=== PATIENT | female | born 1940 | race Caucasian/White ===

== ENCOUNTER 2018-12-13 16:25 | Emergency (ER) | payer OTHER, MEDICARE ==
[~2018-12-13] VITALS: Ht 160 cm; Wt 63.5 kg
[2018-12-13] MEDS ORDERED: Prinivil10 MG PO (16:37)
[2018-12-13] MEDS ORDERED: LEVSOD88 PO (16:37)
[2018-12-13] MEDS ORDERED: ATOR10 PO (16:37)
== END 2018-12-13 17:55 | disposition home or self-care (01) ==
LOC: ER 16:25
DX: M79.661 Pain in right lower leg (principal); Z88.0 Allergy status to penicillin; Z88.5 Allergy status to narcotic agent; Z91.041 Radiographic dye allergy status; Z79.899 Other long term (current) drug therapy
CPT/HCPCS: 73590; 73610; 99283-25; A9270-GY

== ENCOUNTER → 2024-03-17 | Outpatient (CLI) | payer MEDICARE ==
[~2024-03-17] MED LIST: ATOR10 PO; LEVSOD88 PO; Prinivil10 MG PO
[2024-03-17 15:18] LABS: Hematocrit 37.8 % (33.0-51.0); Hemoglobin 11.7 g/dL (11.5-16.0); Mean Corpuscular HGB 29.9 pg (26.0-34.0); Mean Corpuscular Volume 97 fL (80-100); Mean Platelet Volume 10.9 fL (9.1-12.4); Platelet Count 249 K/mm3 (150-400); RDW Coefficient Variation 13.3 % (11.7-14.2); RDW Standard Deviation 47.8 fL (35.1-46.3); Red Blood Cell Count 3.91 M/mm3 (3.80-5.20)
[2024-03-17 16:25] LABS: Alanine Aminotransfer (ALT/SGP 14 U/L (12-78); Albumin, Blood 4.1 g/dL (3.4-5.0); Albumin/Globulin Ratio 1.4 (0.8-1.8); Alk Phos 74 U/L (50-136); Anion Gap 10 mmol/L (3-11); Aspartate Aminotrans (AST/SGOT 18 U/L (12-37); Bilirubin, Total 0.4 mg/dL (0.1-1.0); Blood Urea Nitrogen 38 mg/dL (8-24); Bun/Creatinine Ratio 22.6 (12.0-20.0); CHOL/HDL RATIO 2.9; CO2, Blood 30 mmol/L (21-32); Calcium, Blood 9.4 mg/dL (8.5-10.1); Chloride, Blood 102 mmol/L (98-108); Cholesterol 197 mg/dL (50-200); Creatinine, Blood 1.68 mg/dL (0.40-1.00); Glomerular Filtration Rate 30 (60-); Glucose, Blood 91 mg/dL (70-99); HDL Cholesterol 67 mg/dL (>39); LDL/HDL RATIO 1.6; Low Density Lipoprotein Chol 110 mg/dL (0-110); Potassium, Blood 3.7 mmol/L (3.5-5.5); Sodium, Blood 138 mmol/L (136-145); Total Protein, Blood 7.1 g/dL (6.4-8.2); Triglycerides 102 mg/dL (30-160); Very Low Density Lipoprot Chol 20 mg/dL (6-32)
== END ==
LOC: LAB SHORT 12:55 → LAB 12:55
PROVIDERS: Internal Medicine
DX: E03.9 Hypothyroidism, unspecified (principal); E78.00 Pure hypercholesterolemia, unspecified
CPT/HCPCS: 80053; 80061; 84443; 85027

== ENCOUNTER → 2024-08-27 | Outpatient (CLI) | payer MEDICARE ==
[2024-08-28 07:12] LABS: CALCIUM, SERUM 9.7 mg/dL (8.7-10.3); CREATININE, SERUM 1.79 mg/dL (0.57-1.00); PHOSPHORUS, SERUM 3.8 mg/dL (3.0-4.3); POTASSIUM, SERUM 3.2 mmol/L (3.5-5.2)
== END | disposition home or self-care (01) ==
LOC: LAB 13:03 → LAB SHORT 13:03
PROVIDERS: Internal Medicine
DX: N18.32 Chronic kidney disease, stage 3b (principal); E03.9 Hypothyroidism, unspecified
CPT/HCPCS: 80069; 84443

== ENCOUNTER → 2024-12-23 | Outpatient (CLI) | payer OTHER ==
[~2024-12-23] MED LIST changes: +ALPR1 PO; +AMLODIPINE BESYL5 MG PO; +BUTONI; +EUTHYROX125 MC1 PO; +FURO40 PO; +FURO80 PO; +HYDR1TAB94 PO; +HYDROCODONE-AC1 EAC7 PO; +LEVSOD112 PO; +MELA3 PO; +METO25ER PO; +MIRALAX17 GM; +MIRT15 PO; +MIRT30 PO; +SENN187 PO; +XANAX0.5 MG PO
[2024-12-23 20:16] LABS: Albumin, Blood 3.3 g/dL (3.4-5.0); Anion Gap 8 mmol/L (3-11); Blood Urea Nitrogen 19 mg/dL (8-24); Bun/Creatinine Ratio 24.9 (12.0-20.0); CO2, Blood 31 mmol/L (21-32); Chloride, Blood 92 mmol/L (98-108); Creatinine, Blood 0.76 mg/dL (0.40-1.00); Free Thyroxine 1.59 ng/dL (0.70-1.60); Glomerular Filtration Rate 77 (60-); Glucose, Blood 121 mg/dL (70-99); Phosphorus, Blood 2.3 mg/dL (2.5-4.9); Potassium, Blood 3.5 mmol/L (3.5-5.5); Sodium, Blood 127 mmol/L (136-145); Thyroid Stimulating Hormone 0.271 uIU/mL (0.360-4.800)
== END ==
LOC: LAB SHORT 17:38 → LAB 17:38
PROVIDERS: Internal Medicine
DX: N30.00 Acute cystitis without hematuria (principal); E03.9 Hypothyroidism, unspecified
CPT/HCPCS: 80069; 84439; 84443; 87086

== ENCOUNTER → 2025-01-26 | Outpatient (CLI) | payer OTHER | LOC: LAB 23:11 → LAB SHORT 23:11 | DX: N39.0 Urinary tract infection, site not specified (principal) | CPT/HCPCS: 87077; 87086; 87186 ==